=== PATIENT | female | born 1985 | race Caucasian/White ===

== ENCOUNTER 2020-09-04 07:36 | Emergency (ER) | payer MEDICAID ==
[~2020-09-04] VITALS: Ht 162.6 cm; Wt 91.0 kg
[2020-09-04] MEDS ORDERED: ACETAMINOPHEN 325MG TABLET PO ONE (08:15)
[2020-09-04 08:30] VITALS: BP 120/78
== END 2020-09-04 08:13 | disposition home or self-care (01) ==
LOC: ER 07:56
DX: U07.1 COVID-19 (principal); R03.0 Elevated blood-pressure reading, without diagnosis of hypertension; E03.9 Hypothyroidism, unspecified
CPT/HCPCS: 99283